=== PATIENT | female | born 1985 | race Caucasian/White ===

== ENCOUNTER 2016-09-22 17:27 | Inpatient (IN) | payer OTHER ==
[2016-09-22] MEDS ORDERED: ONDANSETRON HCL 4 MG/2 ML SOL IV PRN (17:35)
[2016-09-22] MEDS ORDERED: KETOROLAC TROMETHAMINE 30 MG/ML SOL IV PRN (17:35)
[2016-09-22] MEDS ORDERED: SODIUM CHLORIDE 0.9% FLUSH 10 ML SOL IV PRN (17:35)
[2016-09-22] MEDS ORDERED: ACETAMINOPHEN 325 MG PO PRN (17:35)
[2016-09-22] MEDS ORDERED: SODIUM CHLORIDE 0.9% 1000ML 1,000 ML IV ONE ×2 (18:00→19:30)
[2016-09-22] MEDS ORDERED: PROMETHAZINE HYDROCHLORIDE 25 MG/ML SOL IV PRN (20:15)
[2016-09-23] MEDS: SODIUM CHLORIDE 0.9% 1000ML 1,000 ML IV SCH ×3 (00:32→05:30)
[2016-09-23 00:59] VITALS: O2SAT 98
[2016-09-23] MEDS ORDERED: SODIUM CHLORIDE 0.9% 1000ML 1,000 ML IV SCH (08:24)
[2016-09-23] MEDS ORDERED: LOPERAMIDE HYDROCHLORIDE 2 MG CAP PO PRN (08:24)
[2016-09-23 10:46] VITALS: BP 120/78; PULSE 80; RESP 24; TEMP 97.5
[2016-09-23] MEDS ORDERED: GABAPENTIN 300 MG CAP PO SCH (21:00)
[2016-09-23] MEDS ORDERED: CITALOPRAM 20 MG TAB PO SCH (21:00)
[2016-09-23] MEDS ORDERED: LURASIDONE HCL 60 MG PO SCH (21:00)
== END 2016-09-23 12:55 | disposition home or self-care (01) | DRG 249 ==
LOC: ACUTE CARE 17:27
PROVIDERS: ADMIT Family Medicine; ATTEND Family Medicine
DX: K52.9 Noninfective gastroenteritis and colitis, unspecified (principal); E86.0 Dehydration; F41.9 Anxiety disorder, unspecified
CPT/HCPCS: 74177; J1885; J2405; J2550; Q9967